=== PATIENT | male | born 1940 | race Caucasian/White ===

== ENCOUNTER 2016-08-23 06:36 | Inpatient (IN) | payer MEDICARE, OTHER ==
[~2016-08-23] VITALS: Ht 190.5 cm; Wt 96.8 kg
[2016-08-23] VITALS (11 sets, daily range): BP systolic 98–130; BP diastolic 54–73; PULSE 65–86; RESP 16–20; TEMP 98–98.2; O2SAT 92–98
[~2016-08-23 06:36] MED LIST: ACET325S8 PO; ALPR.5; ASPI81 PO; CARI350T19 PO; CHOL1CAP6 PO; CLOP75 PO; FERR324T4 PO; GABA100C2 PO; LATA.005%O OU; LIVA2TAB PO; METO25CR PO; METO50TA11 PO; MIRA33502 PO; MVI PO; ONDAN4 PO; OXYC1SOL5 PO; ROXI5TAB4 PO; [UNRECOGNIZED DRUG - CODE]
[2016-08-23] MEDS ORDERED: ASPIRIN 81 MG CHEW TAB PO PRN (07:15)
[2016-08-23] MEDS ORDERED: ONDA1TAB17 PO (07:50)
[2016-08-23] MEDS ORDERED: RAMI2.5C PO (07:50)
[2016-08-23] MEDS ORDERED: PLAV75TA29 PO (07:50)
[2016-08-23] MEDS ORDERED: ASPI1TAB69 PO (07:50)
[2016-08-23] MEDS ORDERED: ALPR0.5T3 PO (07:50)
[2016-08-23] MEDS ORDERED: OMEG100010 PO (07:50)
[2016-08-23] MEDS ORDERED: LATA.005%O EACH EYE (07:50)
[2016-08-23] MEDS ORDERED: GABA600T PO (07:50)
[2016-08-23] MEDS ORDERED: TOPR50TA PO (07:50)
[2016-08-23] MEDS ORDERED: FURO40TA PO (07:50)
[2016-08-23] MEDS ORDERED: VITA100064 PO (07:50)
[2016-08-23] MEDS ORDERED: NITR1SUB3 SL (07:50)
[2016-08-23 08:23] LABS: BICARBONATE 24.4 MEQ/L (21.0-32.0); POTASSIUM 5.1 MEQ/L (3.5-5.1)
[2016-08-23] MEDS ORDERED: IOHEXOL 350 MG/ML 50 ML BTL (for Cath Lab) OTHER ONE (08:34)
[2016-08-23] MEDS ORDERED: IOHEXOL 350 MG/ML 100 ML BTL (for Cath Lab) OTHER ONE (08:34)
[2016-08-23] MEDS ORDERED: HEPARIN-NS/PF INJ 500 ML ONE (08:42)
[2016-08-23] MEDS ORDERED: CHOLECALCIFEROL (VIT D3) 1000 UNIT TAB PO SCH (09:00)
[2016-08-23] MEDS ORDERED: METOPROLOL SUCCINATE 25 MG EXTENDED RELEASE TAB PO SCH (09:00)
[2016-08-23] MEDS ORDERED: HEPARIN SODIUM - IV 10,000 UNITS/10 ML VIAL ONE (09:18)
[2016-08-23 09:22] LABS: AUTOMATED NEUTROPHIL # 1.9 TH/MM3 (1.8-7.7); BASOPHIL % 0.3 % (0.0-2.0); EOSINOPHIL # 0.1 TH/MM3 (0-0.4); EOSINOPHIL % 3.4 % (0.0-4.0); HEMATOCRIT 34.9 % (39.0-51.0); HEMO FLAGS DIFF FINAL; LYMPH % 36.3 % (9.0-44.0); LYMPHOCYTE # 1.5 TH/MM3 (1.0-4.8); MEAN CELL VOLUME 98.8 FL (80.0-100.0); MEAN CORPUSCULAR HEMOGLOBIN 34.2 PG (27.0-34.0); MEAN CORPUSCULAR HGB CONC 34.6 % (32.0-36.0); MONO % 12.6 % (0.0-8.0); NEUT % 47.4 % (16.0-70.0); PLATELET COUNT 106 TH/MM3 (150-450); RED BLOOD COUNT 3.54 MIL/MM3 (4.50-5.90); RED CELL DISTRIBUTION WIDTH 14.8 % (11.6-17.2)
[2016-08-23] MEDS ORDERED: ADENOSINE STRESS TEST INJ 90 MG/30 ML VIAL ONE (09:29)
[2016-08-23 09:31] LABS: APTT (PATIENT) 42.9 SEC (24.3-30.1); INTERNATIONAL NORMALIZED RATIO 1.1 RATIO; PROTHROMBIN TIME - PATIENT 11.7 SEC (9.8-11.6)
[2016-08-23] MEDS ORDERED: CLOPIDOGREL 300 MG TAB ONE (09:51)
[2016-08-23] MEDS ORDERED: ASPIRIN 81 MG CHEW TAB ONE (09:52)
[2016-08-23] MEDS ORDERED: FUROSEMIDE 40 MG/4 ML VIAL ONE (10:06)
[2016-08-23] MEDS ORDERED: SODIUM CHLORIDE 0.9% FLUSH 10 ML FLUSH PRN (10:15)
[2016-08-23] MEDS ORDERED: MISC INFORMATION XX ONE (10:15)
--- NOTE | 2016-08-23 10:15 | EKG ---
Date Performed: 08/23/2016 Time Performed: 07:53:54 PTAGE: 76 years EKG: Baseline artifact present Unclear underlying rhythm Incomplete RIGHT bundle branch block Ge neralized low QRS voltages Abnormal ECG COMPARED TO PRIOR ELECTROCARDIOGRAM, I cannot accurately comp are rhythm due to artifact. PREVIOUS TRACING : 04/26/2014 13.24 DOCTOR: Mati Pendleton Interpretating Date/Time 08/23/2016 10:13:57
[2016-08-23] MEDS ORDERED: NITROGLYCERIN 0.4 MG SL 25 TABS/BTL SL PRN (11:45)
[2016-08-23] MEDS ORDERED: ALPRAZolam 0.5 MG TAB PO PRN (11:45)
[2016-08-23] MEDS ORDERED: ONDANSETRON ODT 4 MG TAB PO PRN (12:00)
[2016-08-23] MEDS ORDERED: ATROPINE SULFATE 1 MG/10 ML SYRINGE ONE (13:48)
[2016-08-23 19:41] LABS: FERRITIN 143 NG/ML (26-388); TRANSFERRIN IRON PROFILE 235 MG/DL (200-360)
--- NOTE | 2016-08-23 19:47 | MB ---
cc: INGE ENRIQUEZ MD,SIXTO Alvares M.D. DATE OF CONSULTATION 08/23/16 REASON FOR CONSULTATION Consult requested by Dr. Sixto Guan for evaluation of thrombocytopenia. HISTORY OF PRESENT ILLNESS Niraj is a 76-year-old male. He has multiple medical problems. He presented to Dr. Guan's office complaining of shortness of breath. Dr. Guan did some studies in his office which were abnormal. The patient was admitted to the hospital for cardiac catheterization. The patient underwent cardiac cath today. The results of those are not available to me. He had a CBC this morning which showed white count of 4, hemoglobin 12.1, hematocrit 34.9. Platelet count is 106. Because of thrombocytopenia, I have been asked to see him for further evaluation. The patient denies any previous history of thrombocytopenia. He denies any bleeding. He denies any spontaneous bruising, however, he states that whenever he scratches his forearms he gets bruises. He states that he still has chest heaviness. He states that most likely he is going to be discharged tomorrow by Dr. Guan. The rest of the review of systems is negative. PAST MEDICAL HISTORY 1. Coronary artery disease 2. Endocarditis, 3. Chronic atrial fibrillation, 4. Hypercholesterolemia, 5. Carotid artery stenosis 6. Abdominal aortic aneurysm, 7. Hypertension, 8. Gastroesophageal reflux disease, 9. Sleep apnea. PAST SURGICAL HISTORY 1. AICD permanent pacemaker placement which got infected and was removed which had caused endocarditis. 2. Coronary artery bypass surgery 3. Fracture of the lumbar spine repaired by Dr. Rubio 4. Abdominal aortic aneurysm repair, 5. Tonsillectomy, 6. Inguinal hernia repair, 7. Cardiac catheterization 8. Back surgery. 9. Cardiac ablation for atrial fibrillation. ALLERGIES STATIN MEDICATIONS Please see EMR FAMILY HISTORY Noncontributory. SOCIAL HISTORY The patient does not smoke cigarettes, does not drink alcohol. PHYSICAL EXAMINATION GENERAL: A well-developed, well-nourished white male in no apparent distress. VITAL SIGNS: Temperature 98, heart rate is 84, blood pressure 123/98. HEENT: PERRLA, EOMI, anicteric. No oral lesions are noted. NECK: Supple. LYMPHATICS: There is no cervical, supraclavicular, axillary lymphadenopathy noted. LUNGS: Clear. No wheezing, rhonchi or rales. HEART: Regular rate and rhythm. ABDOMEN: Soft, nontender. Spleen is palpable. EXTREMITIES: No pedal edema. NEUROLOGIC: Awake, alert, oriented times threes SKIN: No significant lesions are noted. ASSESSMENT 1. Chronic thrombocytopenia. The differential is hypersplenism from cirrhosis of the liver versus chronic ITP. 2. Palpable spleen probably due to the cirrhosis of the liver. 3. Multiple medical problems as dictated above. PLAN I have reviewed his available records and I had an extensive discussion with the patient and his regarding the thrombocytopenia. The patient is not aware of his thrombocytopenia. He states that he sees Dr. Cody Mike on a regular basis and he has never been told that his platelet count is low. When I reviewed his previous CBCs on the EMR at [facility], the patient has thrombocytopenia since 2014 or this could be longer. In April of 2014, his plate count was 113, then went down to 67, 71, 67. Also in 2013 and 2012 he had mild thrombocytopenia as well. The patient stated that at that time he had endocarditis and he was sick. He had infection and was treated with antibiotics. At this point, my recommendation is to get a CAT scan of the abdomen and pelvis to evaluate for the cirrhosis of the liver and hypersplenism. I will also get the B12, folate and iron studies and hepatitis profile. Further recommendations based on his hospital stay. Thank you for asking my opinion. Tamica Enriquez MD / /5:44 PM /7:30 PM DANIELA
[2016-08-23] MEDS: FUROSEMIDE 40 MG TAB PO SCH (20:02)
[2016-08-23] MEDS: GABAPENTIN 300 MG CAP PO SCH (20:02)
[2016-08-23] MEDS: SODIUM CHLORIDE 0.9% FLUSH 10 ML FLUSH SCH (20:03)
[2016-08-23] MEDS ORDERED: LATANOPROST 0.005% OPHT SOLN 2.5 ML BTL EACH EYE SCH (21:00)
[2016-08-24] VITALS (17 sets, daily range): BP systolic 98–124; BP diastolic 55–70; PULSE 73–90; RESP 16–20; TEMP 97.7–98.4; O2SAT 95–96
[2016-08-24 05:26] LABS: AUTOMATED NEUTROPHIL # 2.6 TH/MM3 (1.8-7.7); BASOPHIL % 0.4 % (0.0-2.0); EOSINOPHIL # 0.2 TH/MM3 (0-0.4); EOSINOPHIL % 3.3 % (0.0-4.0); HEMATOCRIT 37.7 % (39.0-51.0); HEMO FLAGS DIFF FINAL; LYMPH % 31.7 % (9.0-44.0); LYMPHOCYTE # 1.5 TH/MM3 (1.0-4.8); MEAN CELL VOLUME 100.1 FL (80.0-100.0); MEAN CORPUSCULAR HEMOGLOBIN 33.6 PG (27.0-34.0); MEAN CORPUSCULAR HGB CONC 33.6 % (32.0-36.0); MONO % 11.2 % (0.0-8.0); NEUT % 53.4 % (16.0-70.0); PLATELET COUNT 117 TH/MM3 (150-450); RED BLOOD COUNT 3.76 MIL/MM3 (4.50-5.90); RED CELL DISTRIBUTION WIDTH 14.8 % (11.6-17.2); WHITE BLOOD COUNT 4.8 TH/MM3 (4.0-11.0)
[2016-08-24 05:50] LABS: BICARBONATE 24.2 MEQ/L (21.0-32.0); POTASSIUM 4.2 MEQ/L (3.5-5.1)
[2016-08-24] MEDS: GABAPENTIN 300 MG CAP PO SCH (07:48)
[2016-08-24] MEDS: SODIUM CHLORIDE 0.9% FLUSH 10 ML FLUSH SCH (07:49)
[2016-08-24] MEDS: FUROSEMIDE 40 MG TAB PO SCH (07:49)
[2016-08-24] MEDS ORDERED: RAMIPRIL 2.5 MG CAP PO SCH (09:00)
[2016-08-24] MEDS ORDERED: ASPIRIN 81 MG CHEW TAB PO SCH (09:00)
[2016-08-24] MEDS ORDERED: CLOPIDOGREL 75 MG TAB PO SCH (09:00)
[2016-08-24] MEDS ORDERED: DIATRIZOATE MEGLUM/DIATRIZOATE SOD 9 ML CUP PO ONE (10:15)
--- NOTE | 2016-08-24 11:13 | PD.ONC.PN ---
Subjective Subjective Remarks Afebrile overnight. Patient denies pain at present. No bleeding. Resting comfortably waiting to go for CAT scan. Objective Data Date Time Temp Pulse Resp B/P Pulse Ox O2 Delivery O2 Flow Rate FiO2 08/24/16 10:00 86 08/24/16 09:00 90 08/24/16 08:00 95 Room Air 08/24/16 08:00 97.7 87 16 114/70 95 08/24/16 08:00 86 08/24/16 07:00 79 08/24/16 06:00 84 08/24/16 05:00 87 08/24/16 04:00 Room Air 08/24/16 04:00 98.0 88 18 103/56 96 08/24/16 04:00 88 08/24/16 03:00 85 08/24/16 02:00 84 08/24/16 01:00 82 08/24/16 00:00 Room Air 08/24/16 00:00 98.4 87 20 98/55 95 08/24/16 00:00 87 08/23/16 23:00 82 08/23/16 22:00 86 08/23/16 21:00 80 08/23/16 20:00 98.2 85 20 98/54 97 08/23/16 20:00 85 08/23/16 18:06 80 08/23/16 17:07 82 08/23/16 16:00 84 08/23/16 15:00 78 08/23/16 15:00 98.0 83 16 123/66 98 08/23/16 14:06 83 08/23/16 13:30 75 16 100/60 96 08/23/16 13:09 99 Room Air 08/24/16 08/24/16 08/24/16 07:00 15:00 23:00 Intake Total 250 ml Output Total 600 ml Balance -350 ml Result Diagram: 08/24/16 0446 08/24/16 0426 Laboratory Results Laboratory Tests Test 08/24/16 08/24/16 04:26 04:46 Sodium Level 138 MEQ/L Potassium Level 4.2 MEQ/L Chloride Level 106 MEQ/L Carbon Dioxide Level 24.2 MEQ/L Anion Gap 8 MEQ/L Blood Urea Nitrogen 20 MG/DL Creatinine 1.30 MG/DL Estimat Glomerular Filtration 54 ML/MIN Rate Random Glucose 101 MG/DL Calcium Level 8.6 MG/DL Total Creatine Kinase 42 U/L White Blood Count 4.8 TH/MM3 Red Blood Count 3.76 MIL/MM3 Hemoglobin 12.7 GM/DL Hematocrit 37.7 % Mean Corpuscular Volume 100.1 FL Mean Corpuscular Hemoglobin 33.6 PG Mean Corpuscular Hemoglobin 33.6 % Concent Red Cell Distribution Width 14.8 % Platelet Count 117 TH/MM3 Mean Platelet Volume 7.2 FL Neutrophils (%) (Auto) 53.4 % Lymphocytes (%) (Auto) 31.7 % Monocytes (%) (Auto) 11.2 % Eosinophils (%) (Auto) 3.3 % Basophils (%) (Auto) 0.4 % Neutrophils # (Auto) 2.6 TH/MM3 Lymphocytes # (Auto) 1.5 TH/MM3 Monocytes # (Auto) 0.5 TH/MM3 Eosinophils # (Auto) 0.2 TH/MM3 Basophils # (Auto) 0.0 TH/MM3 CBC Comment DIFF FINAL Differential Comment Administered Medications Medications (Trade) Dose Ordered Sig/Selwyn Route PRN Reason Start Time Stop Time Status Last Admin Dose Admin Sodium Chloride (NS Flush) 2 ml BID .XX 08/23/16 21:00 08/24/16 07:49 Aspirin (Aspirin Chew) 81 mg DAILY PO 08/24/16 09:00 08/24/16 07:48 Clopidogrel Bisulfate (Plavix) 75 mg DAILY PO 08/24/16 09:00 08/24/16 07:48 Ramipril (Altace) 2.5 mg DAILY PO 08/24/16 09:00 08/24/16 07:48 Metoprolol Succinate (Toprol Xl) 25 mg DAILY PO 08/23/16 09:00 08/24/16 07:48 Cholecalciferol (Vitamin D3) 1,000 units DAILY PO 08/23/16 09:00 08/24/16 07:48 Alprazolam (Xanax) 0.5 mg Q4H PRN PO ANXIETY 08/23/16 11:45 08/23/16 20:02 Gabapentin (Neurontin) 600 mg BID PO 08/23/16 21:00 08/24/16 07:48 Furosemide (Lasix) 40 mg BID PO 08/23/16 21:00 08/24/16 07:49 Objective Remarks GENERAL: Elderly male, sitting up in bed in nad. SKIN: Warm and dry. HEAD: Normocephalic. EYES: No injection or drainage. NECK: Supple, trachea midline. CARDIOVASCULAR: Regular rate and rhythm RESPIRATORY: Breath sounds equal bilaterally. No accessory muscle use. GASTROINTESTINAL: Abdomen soft, non-tender, nondistended. EXTREMITIES: No cyanosis NEUROLOGICAL: No obvious focal deficit. Awake, alert, and oriented x3. Assessment/Plan Problem List: (1) Thrombocytopenia Status: Acute Plan: 08/24: await CT ab/pelvis. platelets improved today. --differential is hypersplenism from cirrhosis of the liver versus chronic ITP. -- patient has thrombocytopenia since 2014 or this could be longer. --CT ab/pelvis today --hepatitis profile--pending --B12/folate--WNL --iron studie--WNLs Assessment 76y/o male admitted for cardiac catheterization. Hematology consulted for thrombocytopenia. h/o Coronary artery disease, Endocarditis, Chronic atrial fibrillation, Carotid artery stenosis, Abdominal aortic aneurysm, Hypertension, Gastroesophageal reflux disease, Sleep apnea. AICD permanent pacemaker placement which got infected and was removed which had caused endocarditis. Coronary artery bypass surgery Fracture of the lumbar spine repaired by Dr. Rubio Abdominal aortic aneurysm repair, Cardiac ablation for atrial fibrillation Attending Statement now new c/o plat are trending up. CT A/P = Cirrhosis but spleen is NL. Hepatitis panel is pending. D/W pt and . D/W Dr Guan D/W RN. Ok to d/c FU in office in 2 weeks. Andreea Traylor Aug 24, 2016 11:13 Carie Enriquez MD Aug 24, 2016 16:35
[2016-08-24] MEDS ORDERED: IOHEXOL 350 MG/ML 10 ML VIAL (for RAD DIAG) IV ONE (13:32)
--- NOTE | 2016-08-24 13:41 | RADRPT ---
EXAM DATE/TIME: 08/24/2016 13:22 [place] COMPARISON: No previous studies available for comparison. INDICATIONS : Cirrhosis and splenomegaly with. IV CONTRAST: 98 cc Omnipaque 350 (iohexol) IV ORAL CONTRAST: No oral contrast ingested. RADIATION DOSE: 16.23 CTDIvol (mGy) MEDICAL HISTORY : None SURGICAL HISTORY : None. ENCOUNTER: Initial ACUITY: 1 day PAIN SCALE: 0/10 LOCATION: Bilateral upper quadrant TECHNIQUE: Volumetric scanning of the abdomen and pelvis was performed. Using automated exposure control and ad justment of the mA and/or kV according to patient size, radiation dose was kept as low as reasonably achievable to obtain optimal diagnostic quality images. FINDINGS: No pleural or pericardial effusions. Cirrhotic appearing liver is noted. Pancreas, spleen, adrenal gl ands are unremarkable. Stomach unremarkable. There is cortical thinning of both kidneys. The patient has had previous endovascular stent graft repair of abdominal aortic aneurysm. The aorta has a carloz l AP dimension 3.4 cm on axial image 50. Small fat-containing umbilical hernia. Ureter bladder unrema rkable. Prostatic calcifications are noted with mild hypertrophy. There is diverticulosis of the sigm oid colon without diverticulitis. Numerous varices are seen in the left upper quadrant in the region of the spleen. Small fat-containing right inguinal hernia. Osseous structures demonstrate median ster notomy, and posterior eliseo and transpedicular screw fixation of the thoracolumbar spine. Lung bases ar e clear. CONCLUSION: 1. Cirrhosis and portal hypertension without evidence of splenomegaly. 2. Diverticulosis. Luke Candelario MD on August 24, 2016 at 13:36 Board Certified Radiologist. This report was verified electronically.
--- NOTE | 2016-08-24 16:05 | PD.CARD.PN ---
Subjective Subjective Remarks alert in nad Objective Vital Signs / I&O Vital Signs Date Time Temp Pulse Resp B/P Pulse Ox O2 Delivery O2 Flow Rate FiO2 08/24/16 15:30 97.7 82 16 124/67 96 08/24/16 15:00 74 08/24/16 14:00 78 08/24/16 12:00 74 08/24/16 11:00 84 08/24/16 11:00 97.7 83 16 120/63 96 08/24/16 10:00 86 08/24/16 09:00 90 08/24/16 08:00 95 Room Air 08/24/16 08:00 97.7 87 16 114/70 95 08/24/16 08:00 86 08/24/16 07:00 79 08/24/16 06:00 84 08/24/16 05:00 87 08/24/16 04:00 Room Air 08/24/16 04:00 98.0 88 18 103/56 96 08/24/16 04:00 88 08/24/16 03:00 85 08/24/16 02:00 84 08/24/16 01:00 82 08/24/16 00:00 Room Air 08/24/16 00:00 98.4 87 20 98/55 95 08/24/16 00:00 87 08/23/16 23:00 82 08/23/16 22:00 86 08/23/16 21:00 80 08/23/16 20:00 98.2 85 20 98/54 97 08/23/16 20:00 85 08/23/16 18:06 80 08/23/16 17:07 82 I/O 08/23/16 08/23/16 08/23/16 08/24/16 08/24/16 08/24/16 07:00 15:00 23:00 07:00 15:00 23:00 Intake Total 420 ml 250 ml Output Total 500 ml 600 ml Balance -80 ml -350 ml Intake Oral 420 ml 240 ml IV Total 10 ml Output Urine Total 500 ml 600 ml # Bowel Movements 0 0 Physical Exam GENERAL: SKIN: Warm and dry. HEAD: Normocephalic. EYES: No scleral icterus. No injection or drainage. NECK: Supple, trachea midline. No JVD or lymphadenopathy. CARDIOVASCULAR: Regular rate and rhythm without murmurs, gallops, or rubs. RESPIRATORY: Breath sounds equal bilaterally. No accessory muscle use. GASTROINTESTINAL: Abdomen soft, non-tender, nondistended. MUSCULOSKELETAL: No cyanosis, or edema. BACK: Nontender without obvious deformity. No CVA tenderness. Laboratory Laboratory Tests Test 08/24/16 08/24/16 04:26 04:46 Sodium Level 138 MEQ/L Potassium Level 4.2 MEQ/L Chloride Level 106 MEQ/L Carbon Dioxide Level 24.2 MEQ/L Anion Gap 8 MEQ/L Blood Urea Nitrogen 20 MG/DL Creatinine 1.30 MG/DL Estimat Glomerular Filtration 54 ML/MIN Rate Random Glucose 101 MG/DL Calcium Level 8.6 MG/DL Total Creatine Kinase 42 U/L White Blood Count 4.8 TH/MM3 Red Blood Count 3.76 MIL/MM3 Hemoglobin 12.7 GM/DL Hematocrit 37.7 % Mean Corpuscular Volume 100.1 FL Mean Corpuscular Hemoglobin 33.6 PG Mean Corpuscular Hemoglobin 33.6 % Concent Red Cell Distribution Width 14.8 % Platelet Count 117 TH/MM3 Mean Platelet Volume 7.2 FL Neutrophils (%) (Auto) 53.4 % Lymphocytes (%) (Auto) 31.7 % Monocytes (%) (Auto) 11.2 % Eosinophils (%) (Auto) 3.3 % Basophils (%) (Auto) 0.4 % Neutrophils # (Auto) 2.6 TH/MM3 Lymphocytes # (Auto) 1.5 TH/MM3 Monocytes # (Auto) 0.5 TH/MM3 Eosinophils # (Auto) 0.2 TH/MM3 Basophils # (Auto) 0.0 TH/MM3 CBC Comment DIFF FINAL Differential Comment Assessment and Plan Problem List: (1) CAD (coronary artery disease) (2) HTN (hypertension) (3) Thrombocytopenia Assessment and Plan 1.) CAD - s/p ptca rca, stable for discharge 2.) Thrombocytopenia - f/u Rec hematology 3.) Cirrhosis - rec GI Sixto Jane MD Aug 24, 2016 16:05
--- NOTE | 2016-08-24 19:03 | EKG ---
Date Performed: 08/24/2016 Time Performed: 06:42:18 PTAGE: 76 years EKG: Sinus rhythm with PACs and borderline 1st degree A-V block Consider left atrial abnormality Low QRS voltages in l imb leads Borderline ECG PREVIOUS TRACING : 08/23/2016 07.53 Compared to prior tracing no significant change DOCTOR: Lenore Lozada Interpretating Date/Time 08/24/2016 19:01:41
--- NOTE | 2016-08-25 18:25 | MR ---
cc: NANI REYES M.D. DATE: 08/23/2016. PROCEDURE PERFORMED: Right heart catheterization, left heart catheterization, left ventriculography, coronary angiography, BRAGA angiography, PTCA of the distal right coronary artery, PTCA of the ostial right posterolateral artery. INDICATIONS FOR THE PROCEDURE: [place] Cardiovascular Society class III angina, anginal equivalent. [place] Heart Association class III. Cardiomyopathy. Gated SPECT ejection fraction 14% on nuclear stress test. High-risk nuclear stress test. Small to moderate sized reversal defect in the apex. Small fixed defect in the posterior wall. Coronary artery disease status post CABG. Multiple percutaneous coronary interventions. Congestive heart failure. Cardiomyopathy. Decrease in the gated SPECT ejection fraction from 39% in 2016 to 14% currently. DESCRIPTION OF THE PROCEDURE IN DETAIL: The patient was brought to the cardiac catheterization laboratory and prepped and the usual sterile fashion. 10 cc of 1% lidocaine was used to locally anesthetize the right common femoral artery. A 4-Monegasque sheath was subsequently placed in the right common femoral artery. A 5-Monegasque sheath was placed in the right common femoral vein. Right heart catheterization was performed first with the following findings: 1. Capillary wedge pressure is 30/29/18. 2. PA pressure 48/22/35. 3. RV pressure 43/18/7. 4. RA pressures 11/12-9. The cardiac output by Nathalie is 6.2 liters/minute. Cardiac index by Nathalie is 2.8 liters/minute/M2. Femoral artery sat on room air is 96.9%. PA saturation is 69.8%. RA saturation is 70.9%. Left heart catheterization was then performed. Note, we had to steer the wire through the distal aortoiliac stent which was not too difficult. Thereafter, all catheter exchanges were done over a long 035 J-tip wire. A 4-Monegasque JR4, JL5 catheters were used to perform left and right coronary angiography, left ventriculography, BRAGA angiography. FINDINGS: 1. The right coronary artery is dominant. It appears to have a stent throughout most of its entire length with mild diffuse in-stent stenosis in the proximal to mid and mid to distal segment. The distal segment has a focal 95% stenosis. There appears to be stent extending into the right MALAIKA, although it is difficult to confirm fluoroscopically and with ___. There is a high-grade 95% stenosis in the ostium of the posterolateral artery. The right PDA has mild disease up to 10% to 20% of the proximal segment. Also, note the LV pressure is 141/14/20. Ejection fraction 55% to 60%. 2. The left main coronary artery appears to have a long diffuse 50% to perhaps 60% stenosis. 3. The left anterior descending is occluded at the ostium. 4. The left circumflex vessel has mild disease in the proximal to mid AV groove, mild to moderate diffuse disease up to 30% to 40% angiographically. The mid segment has a focal 50% stenosis. 5. The first obtuse marginal vessel is a medium sized vessel with a proximal 80% stenosis that is probably a 2.5 mm diameter vessel. 6. There is a distal posterolateral artery which bifurcates and has no significant disease. A 4-Monegasque sheath was exchanged for a 6-Monegasque sheath. ___/kg of heparin was given. ACT was 320. Note, the platelet count was 106,000 which is a new finding for the patient; therefore, I did not use a 2b3a agent. A 6-Monegasque JR-4 guide and 0.014 [place] guidewire was placed into the distal posterolateral artery. I then placed a second 0.014 [place] guidewire into the right PDA to protect it and then used a 3.0 x 10, 4 balloon and did three inflations of 8 to 10 atmospheres in the ostial right posterolateral artery. The stenosis went from 95% to 20% ANNIKA III flow. I then balloon angioplastied the distal right coronary artery with a 3.0 x 10 Euphora balloon with one inflation of 12 atmospheres for 20 seconds. The stenosis went from 95% to 20% with ANNIKA III flow. Note that the BRAGA to the left anterior descending is widely patent. The left anterior descending beyond the graft insertion site has no significant obstructive disease and is transapical. There is retrograde filling to a point of occlusion approximately 20 mm proximal to the BRAGA insertion site. CONCLUSIONS: 1. [place] Heart Association class III anginal equivalent. 2. [place] Cardiovascular Society class III angina. 3. Culprit 95% sequential in-stent stenoses in the distal right coronary artery and ostial right posterolateral artery. 4. 80% stenosis in a medium-sized obtuse marginal vessel as detailed above. 5. Patent BRAGA to the left anterior descending. 6. 80% stenosis in a medium sized marginal vessel. 7. 50% to 60% ostial proximal left main feeding the left circumflex vessel with protected left anterior descending. 8. Normal left ventricular systolic functioning at 55% to 60%. 9. Elevated right heart catheterization pressures as detailed above. 10. Successful PTCA of the distal right coronary artery from 95% to 20% with ANNIKA III flow. 11. Successful PTCA of the ostial right posterolateral artery from 95% to 20% with ANNIKA III flow. 12. Recommend Plavix 300 milligram load and then continue Plavix 75 milligrams daily. 13. Aspirin 81 milligrams daily. 14. Will get a hematology consult to evaluate the low platelet count. 15. Will reassess the patient clinically next week to determine risks and benefits of proceeding with PTCA of the obtuse marginal vessel and FFR of the left main feeding the left circumflex vessel. 16. Otherwise, continue medical management of coronary artery disease, cardiac risk factor modification. NOTE: The patient is intolerant of statins; therefore, they were not given. MD MAYURI Bernabe/FIGUEROA /10:07 AM /6:01 PM
== END 2016-08-24 15:10 | disposition home or self-care (01) | DRG 251 ==
LOC: HCAT 06:36 → HDIC 06:37 → HCAT 10:17 → HCIS 10:18
PROVIDERS: ADMIT Internal Medicine Interventional Cardiology; ATTEND Internal Medicine Interventional Cardiology
PROC: 4A023N8 Measurement of Cardiac Sampling and Pressure, Bilateral, Percutaneous Approach (ICD-10-PCS; 2016-08-23)
PROC: B2111ZZ Fluoroscopy of Multiple Coronary Arteries using Low Osmolar Contrast (ICD-10-PCS; 2016-08-23)
PROC: B2181ZZ Fluoroscopy of Left Internal Mammary Bypass Graft using Low Osmolar Contrast (ICD-10-PCS; 2016-08-23)
PROC: B2151ZZ Fluoroscopy of Left Heart using Low Osmolar Contrast (ICD-10-PCS; 2016-08-23)
PROC: 02713ZZ Dilation of Coronary Artery, Two Arteries, Percutaneous Approach (ICD-10-PCS; principal; 2016-08-23 08:30)
DX: I25.118 Atherosclerotic heart disease of native coronary artery with other forms of angina pectoris (principal); T82.858A Stenosis of other vascular prosthetic devices, implants and grafts, initial encounter; I42.9 Cardiomyopathy, unspecified; D69.6 Thrombocytopenia, unspecified; I50.9 Heart failure, unspecified; I11.0 Hypertensive heart disease with heart failure; K74.60 Unspecified cirrhosis of liver; I65.29 Occlusion and stenosis of unspecified carotid artery; I48.2 Chronic atrial fibrillation; E78.00 Pure hypercholesterolemia, unspecified; K21.9 Gastro-esophageal reflux disease without esophagitis; G47.30 Sleep apnea, unspecified; Z95.1 Presence of aortocoronary bypass graft
CPT/HCPCS: 74177; 80048; 80074; 82550; 82607; 82728; 82746; 82810; 83540; 83550; 85002; 85025; 85610; 85730; 92920; 93005; 93461; C1725; C1769; C1887; C1893; J0153; J0461; J1644; J1940; Q9963; Q9967

== ENCOUNTER 2016-12-03 11:23 | Day surgery (SDC) | payer MEDICARE, OTHER ==
[~2016-12-03] VITALS: Ht 190.5 cm; Wt 94.5 kg
[2016-12-03] VITALS (9 sets, daily range): BP systolic 123–144; BP diastolic 55–70; PULSE 75–92; RESP 16–18; TEMP 97.8–98.2; O2SAT 95–97
[~2016-12-03 11:23] MED LIST changes: -ACET325S8 PO; -ALPR.5; +ALPR0.5T3 PO; +ASPI1TAB69 PO; -ASPI81 PO; -CARI350T19 PO; -CHOL1CAP6 PO; -CLOP75 PO; -FERR324T4 PO; +FURO40TA PO; -GABA100C2 PO; +GABA600T PO; +LATA.005%O EACH EYE; -LATA.005%O OU; -LIVA2TAB PO; -METO25CR PO; -METO50TA11 PO; -MIRA33502 PO; -MVI PO; +NITR1SUB3 SL; +OMEG100010 PO; +ONDA1TAB17 PO; -ONDAN4 PO; -OXYC1SOL5 PO; +PLAV75TA29 PO; +RAMI2.5C PO; -ROXI5TAB4 PO; +TOPR50TA PO; +VITA100064 PO; -[UNRECOGNIZED DRUG - CODE]
[2016-12-03] MEDS ORDERED: ASPI81TA5 PO (12:17)
[2016-12-03] MEDS: NS 1000P @30 MLS/HR (KVO) IV SCH (12:30)
[2016-12-03] MEDS ORDERED: ASPIRIN 81 MG CHEW TAB PO SCH (12:30)
[2016-12-03 12:59] LABS: BICARBONATE 24.8 MEQ/L (21.0-32.0)
[2016-12-03 13:04] LABS: POTASSIUM 5.1 MEQ/L (3.5-5.1)
[2016-12-03 13:15] LABS: AUTOMATED NEUTROPHIL # 2.2 TH/MM3 (1.8-7.7); BASOPHIL % 0.8 % (0.0-2.0); EOSINOPHIL # 0.2 TH/MM3 (0-0.4); EOSINOPHIL % 4.8 % (0.0-4.0); HEMATOCRIT 35.2 % (39.0-51.0); HEMO FLAGS DIFF FINAL; LYMPH % 35.3 % (9.0-44.0); LYMPHOCYTE # 1.7 TH/MM3 (1.0-4.8); MEAN CELL VOLUME 97.6 FL (80.0-100.0); MEAN CORPUSCULAR HEMOGLOBIN 33.2 PG (27.0-34.0); MEAN CORPUSCULAR HGB CONC 34.1 % (32.0-36.0); MONO % 11.5 % (0.0-8.0); NEUT % 47.6 % (16.0-70.0); PLATELET COUNT 122 TH/MM3 (150-450); RED BLOOD COUNT 3.61 MIL/MM3 (4.50-5.90); RED CELL DISTRIBUTION WIDTH 14.2 % (11.6-17.2); WHITE BLOOD COUNT 4.7 TH/MM3 (4.0-11.0)
[2016-12-03 13:22] LABS: APTT (PATIENT) 34.1 SEC (24.3-30.1); PROTHROMBIN TIME - PATIENT 11.5 SEC (9.8-11.6)
[2016-12-03] MEDS ORDERED: HEPARIN-NS/PF INJ 500 ML ONE (13:24)
[2016-12-03] MEDS ORDERED: MIDAZOLAM HCL 2 MG/2 ML VIAL ONE (13:27)
[2016-12-03] MEDS ORDERED: HEPARIN SODIUM - IV 10,000 UNITS/10 ML VIAL ONE (13:59)
[2016-12-03] MEDS ORDERED: CLOPIDOGREL 300 MG TAB ONE (14:09)
[2016-12-03] MEDS ORDERED: TIROFIBAN INFUSION INJ 250 ML IV ONE (14:09)
[2016-12-03] MEDS: TIROFIBAN INFUSION INJ 250 ML IV SCH (14:22)
[2016-12-03] MEDS ORDERED: MISC INFORMATION XX ONE (14:30)
[2016-12-03] MEDS ORDERED: SODIUM CHLORIDE 0.9% FLUSH 10 ML FLUSH PRN (14:30)
[2016-12-03] MEDS ORDERED: IOHEXOL 350 MG/ML 50 ML BTL (for Cath Lab) OTHER ONE (15:41)
[2016-12-03] MEDS ORDERED: CLOPIDOGREL 300 MG TAB PO ONE (16:00)
[2016-12-03] MEDS: CLOPIDOGREL 75 MG TAB PO SCH (17:42)
[2016-12-03] MEDS: SODIUM CHLORIDE 0.9% FLUSH 10 ML FLUSH SCH (20:51)
[2016-12-04] VITALS (11 sets, daily range): BP systolic 119–136; BP diastolic 71–76; PULSE 89–106; RESP 16; TEMP 97.9–98.3; O2SAT 96
[2016-12-04] MEDS: TIROFIBAN INFUSION INJ 250 ML IV SCH (02:02)
[2016-12-04 05:39] LABS: AUTOMATED NEUTROPHIL # 2.5 TH/MM3 (1.8-7.7); BASOPHIL % 0.3 % (0.0-2.0); EOSINOPHIL # 0.1 TH/MM3 (0-0.4); HEMATOCRIT 34.1 % (39.0-51.0); HEMO FLAGS DIFF FINAL; LYMPH % 34.1 % (9.0-44.0); LYMPHOCYTE # 1.7 TH/MM3 (1.0-4.8); MEAN CELL VOLUME 97.7 FL (80.0-100.0); MEAN CORPUSCULAR HEMOGLOBIN 33.2 PG (27.0-34.0); MONO % 10.3 % (0.0-8.0); NEUT % 52.3 % (16.0-70.0); PLATELET COUNT 139 TH/MM3 (150-450); RED BLOOD COUNT 3.49 MIL/MM3 (4.50-5.90); RED CELL DISTRIBUTION WIDTH 14.4 % (11.6-17.2); WHITE BLOOD COUNT 4.9 TH/MM3 (4.0-11.0)
[2016-12-04 06:22] LABS: BICARBONATE 24.5 MEQ/L (21.0-32.0); POTASSIUM 4.3 MEQ/L (3.5-5.1)
--- NOTE | 2016-12-04 08:37 | EKG ---
Date Performed: 12/03/2016 Time Performed: 12:11:34 PTAGE: 76 years EKG: Sinus arrhythmia Incomplete RBBB Anterior T wave changes are nonspecific Generalized low QR S voltages Borderline ECG PREVIOUS TRACING : 08/24/2016 06.42 DOCTOR: Nathan Muhammad Interpretating Date/Time 12/04/2016 08:31:51
[2016-12-04] MEDS ORDERED: ASPIRIN 81 MG CHEW TAB PO SCH (09:00)
[2016-12-04] MEDS: SODIUM CHLORIDE 0.9% FLUSH 10 ML FLUSH SCH (09:06)
[2016-12-04] MEDS: CLOPIDOGREL 75 MG TAB PO SCH (09:06)
[2016-12-04] MEDS: NS 1000P @30 MLS/HR (KVO) IV SCH (09:06)
[2016-12-04] MEDS ORDERED: PHENYLEPHRINE INJ 40 MG in SODIUM CHLORID 0.9% 500 ML INJ 496 ML IV SCH (11:15)
[2016-12-04] MEDS ORDERED: TERBUTALINE INJ 1 MG/ML AMP SQ PRN ×2 (11:15)
--- NOTE | 2016-12-05 19:34 | MR ---
cc: NANI REYES M.D. DATE: 12/03/2016 PROCEDURES PERFORMED: 1. Right heart catheterization. 2. Left heart catheterization. 3. Left ventriculography. 4. Coronary angiography. 5. PTCA of the distal right coronary artery. 6. BRAGA angiography. INDICATIONS FOR THE PROCEDURE: Unstable angina. New-onset cardiac symptoms with moderate chest pain and severe dyspnea on exertion. [place] Cardiovascular Society class III angina. [place] Heart Association III congestive heart failure. Cardiomyopathy. Coronary artery disease status post CABG x2 separate occasions. DESCRIPTION OF THE PROCEDURE IN DETAIL: The patient was brought to the cardiac catheterization laboratory and prepped and draped in the usual sterile fashion. ___ cc of 1% lidocaine was used to locally anesthetize the right common femoral artery. A 4-Senegalese sheath was placed in the right common femoral artery. A 5-Senegalese sheath was placed in the right common femoral vein. Right heart catheterization was performed first with the following findings: Pulmonary capillary wedge pressure is 36/37-30. PA pressure 47/21-34. RV pressure 53/7-11. RA pressure 14/14-11. All saturations done on room air were the following: Femoral artery saturation was 96.1%. PA saturations 70.5%. Right atrial saturation 69.4%. Cardiac output by Nathalie was 6.7 liters/minute. Cardiac index by Nathalie was 3.0 liters/minute M2. SVR 2219 dynes. Left heart catheterization was then performed with a 4-Senegalese JR-4 catheter. Note, I had to use a Terumo wire to advance across the right common iliac artery and right external iliac system due to vessel tortuosity and fibrocalcification. After I crossed into the distal aorta, I exchanged the 0.035 J-tip conventional wire. All catheter exchanges were thereafter done using the exchange wire with the following findings: LV pressure was 120/19-20. Ejection fraction 55%. The right coronary artery is dominant. There is mild diffuse in-stent stenosis throughout the mid right coronary artery. The distal vessel has a focal 90% in-stent stenosis. The right PDA has an ostial 40% stenosis. The right MALAIKA has a proximal 90% stenosis. It then bifurcates into a small branch which is probably 1.0 to 1.5 mm in diameter. It then is subtotally occluded and there appears to be a post-stenotically dilated vessel versus a remnant of the previous vein graft that then supplies a relatively small short distal MALAIKA. Estimate the vessel diameter there to be 225 mm in diameter. The BRAGA to the left anterior descending is widely patent. The left anterior descending beyond the graft insertion site has no significant obstructive disease. The left anterior descending is transapical. There is filling of the left anterior descending to a point of occlusion in the proximal to mid left anterior descending. There is filling of a small septal finance professional vessel. The 6-Senegalese sheath was exchanged for a 4-Senegalese sheath and 7 units/kg heparin was given. The ACT was 312. The 6-Senegalese JR4 guide and 0.014 [place] guidewire and a 308 Euphora noncompliant balloon were used to dilate the in-stent stenosis in the distal right coronary artery with one inflation to 12 atmospheres for 30 seconds. This did reproduce the patient's symptoms of chest pain. The stenosis went from 90% to 0% with ANNIKA III flow. CONCLUSIONS: 1. Unstable angina. 2. [place] Cardiovascular Society class III angina. 3. [place] Heart Association class III symptoms with culprit 90% distal right coronary artery stenosis. 4. Otherwise severe three-vessel coronary artery disease. 5. Widely patent BRAGA to the left anterior descending. 6. Note, there is high-grade disease in the right MALAIKA; however, the vessel is relatively small compared to the posterior descending artery. 7. Normal left ventricular systolic function with ejection fraction of 55%. 8. Moderately elevated right heart catheterization pressures as detailed above. 9. If the patient continues to have chest pain and/or symptoms of heart failure, could consider stenting or performing angioplasty of the MALAIKA. Also will wait to see the patient's response to revascularization of the right coronary artery. If the patient continues to be short of breath, will treat with diuretics. The patient has been on aspirin and Plavix prior to the procedure. I have reloaded him with 600 milligrams of Plavix. 10. Recommend Aggrastat drip. 11. Recommend aspirin milligrams daily. 12. Recommend Plavix 75 milligrams daily indefinitely due to diffuse stenting of the right coronary artery. 13. The patient is intolerant of statins. He will need to continue optimum nutrition. MD MAYURI Bernabe/FIGUEROA /2:15 PM /7:11 PM
== END 2016-12-04 11:23 | disposition home or self-care (01) ==
LOC: HDIC 11:23 → HCAT 11:23 → HCIS 16:38 → HCAT 12-04 11:23
PROVIDERS: ATTEND Internal Medicine Interventional Cardiology
DX: I25.110 Atherosclerotic heart disease of native coronary artery with unstable angina pectoris (principal); I50.9 Heart failure, unspecified; I42.9 Cardiomyopathy, unspecified; I47.2 Ventricular tachycardia; R06.02 Shortness of breath; I65.29 Occlusion and stenosis of unspecified carotid artery; Z95.1 Presence of aortocoronary bypass graft; K74.60 Unspecified cirrhosis of liver; D69.59 Other secondary thrombocytopenia; E78.00 Pure hypercholesterolemia, unspecified
CPT/HCPCS: 80048; 82550; 82810; 85002; 85025; 85347; 85610; 85730; 92920; 93005; 93458; C1725; C1769; C1887; C1893; J1644; J2250; J3010; J3246; Q9967